=== PATIENT | male | born 1990 | race African-American/Black ===

== ENCOUNTER 2016-07-08 06:13 | Emergency (ER) | payer MEDICAID ==
[~2016-07-08] VITALS: Ht 175.3 cm; Wt 87.0 kg
[2016-07-08] MEDS ORDERED: PREDNISONE 20MG TABLET PO STA (07:01)
[2016-07-08] MEDS ORDERED: ALBUTEROL (0.083%) 2.5MG/3ML NEB HHN STA ×2 (07:33→08:49)
[2016-07-08] MEDS: ALBUTEROL (0.083%) 2.5MG/3ML NEB HHN SCH ×3 (07:42→08:09)
[2016-07-08 09:44] VITALS: BP 148/78
== END 2016-07-08 09:50 | disposition home or self-care (01) ==
LOC: ER 06:44
DX: J45.901 Unspecified asthma with (acute) exacerbation (principal)
CPT/HCPCS: 94640; 99291; J7512; J7611; Z7610

== ENCOUNTER 2017-11-04 06:25 | Emergency (ER) | payer SELFPAY ==
[~2017-11-04] VITALS: Ht 175.3 cm; Wt 91.0 kg
[2017-11-04] MEDS ORDERED: SODIUM CHLORIDE 0.9% 1,000 ML IV ONE (06:54)
[2017-11-04] MEDS ORDERED: IPRATROPIUM/ALBUTEROL 0.5-3(2.5)MG/3ML NEB HHN ONE ×4 (07:00→11:15)
[2017-11-04] MEDS ORDERED: METHYLPREDNISOLONE SOD SUCC 125 MG/2 ML VIAL IV ONE (07:00)
[2017-11-04 12:00] VITALS: BP 129/82
== END 2017-11-04 12:05 | disposition home or self-care (01) ==
LOC: ER 07:01
DX: J45.901 Unspecified asthma with (acute) exacerbation (principal); F12.10 Cannabis abuse, uncomplicated; Z98.890 Other specified postprocedural states
CPT/HCPCS: 71045; 94640; 96374; 99285; J2930; J7030; J7620; Z7610